=== PATIENT | female | born 1965 | race Caucasian/White ===

== ENCOUNTER 2019-05-03 10:58 | Outpatient (CLI) | payer MEDICAID ==
[~2019-05-03 10:58] MED LIST: ACET250T2 PO; FERR-51 PO; FURO-92 PO; FURO20TA3 PO; METF500T PO; METO-93 PO; METO5TAB5 PO; POTA10CA PO; POTA20TA6 PO; SPIR25TA PO
== END 2019-05-03 23:59 | disposition home or self-care (01) ==
LOC: LAB 10:58
PROVIDERS: ATTEND Internal Medicine
DX: E66.2 Morbid (severe) obesity with alveolar hypoventilation (principal)
CPT/HCPCS: 36600; 82803